=== PATIENT | female | born 2000 | race Caucasian/White ===

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

== ENCOUNTER → 2022-01-01 12:13 | Outpatient (BNVA) | payer BC, SELFPAY | PROVIDERS: Family Provider Nurse Practitioner Family; PCP Nurse Practitioner Family; Visit Provider Emergency Medicine | DX: E28.2 Polycystic ovarian syndrome (principal); J45.31 Mild persistent asthma with (acute) exacerbation; L20.82 Flexural eczema; N92.1 Excessive and frequent menstruation with irregular cycle; T78.40XD Allergy, unspecified, subsequent encounter; Z83.2 Family history of diseases of the blood and blood-forming organs and certain disorders involving the immune mechanism | CPT/HCPCS: 85025; 86160; 86162; 86200; 86235; 86255; 86376; 86431 ==

== ENCOUNTER 2022-01-09 14:30 | Outpatient (CLI) | payer BC, SELFPAY ==
--- NOTE | 2022-01-09 14:52 | XR_ITS ---
WS: [id number] Left hand, 2 views, 01/09/2022 Clinical Data: J45.909 - Unspecified asthma, uncomplicated Comparison: None. Findings: No fractures or dislocations are seen. The soft tissues are unremarkable. The joint spaces are normal No periarticular demineralization or calcifications are seen. XR/XR hand LT 2V [id number] Impression: Negative left hand.
--- NOTE | 2022-01-09 14:52 | XR_ITS ---
WS: [id number] Right hand, 2 views, 01/09/2022 Clinical Data: J45.909 - Unspecified asthma, uncomplicated Comparison: None. Findings: No fractures or dislocations are seen. The soft tissues are unremarkable. The joint space s are normal No periarticular demineralization or calcifications are seen. XR/XR hand RT 2V [id number] Impression: Negative right hand.
--- NOTE | 2022-01-09 14:52 | XR_ITS ---
WS: [id number] Sacroiliac joints, 3 views, 01/09/2022 Clinical Data: L40.9 - Psoriasis, unspecified Comparison: None. Findings: The SI joints are normal in width. No erosion, sclerosis or destruction is seen. There are no fractur es or dislocations. The adjacent visualized pelvis and hips are unremarkable. XR/XR sacroiliac jts m 3V [id number] Impression: Negative SI joints.
== END 2022-01-09 14:31 | disposition home or self-care (01) ==
PROVIDERS: PCP Nurse Practitioner Family; Visit Provider Internal Medicine
DX: E28.2 Polycystic ovarian syndrome (principal); J45.909 Unspecified asthma, uncomplicated; L30.9 Dermatitis, unspecified; N92.1 Excessive and frequent menstruation with irregular cycle; T78.40XA Allergy, unspecified, initial encounter; L40.9 Psoriasis, unspecified
CPT/HCPCS: 72202; 73120; 81003; 82306; 82533; 82550; 82607; 82728; 82784; 83516; 83540; 84443; 85651; 86140; 86617; 86704; 86803; 86812; 87340

== ENCOUNTER → 2022-01-24 13:07 | Outpatient (BNVA) | payer BC, SELFPAY | PROVIDERS: PCP Nurse Practitioner Family; Visit Provider Internal Medicine | DX: R31.9 Hematuria, unspecified (principal); R76.8 Other specified abnormal immunological findings in serum | CPT/HCPCS: 81000 ==

== ENCOUNTER 2022-02-05 14:46 | Outpatient (CLI) | payer BC, SELFPAY ==
--- NOTE | 2022-02-05 15:15 | USCV_ITS ---
Devonte Rivas Age: 21 Gender: F : 2000 Exam Date: 02/05/2022 15:11 Ordering Phys: Tressa Collins MD Technologist: JORDAN [place] [facility] [place] F[place] BP: 120 / 60 HR: 85 Rhythm: Sinus Technical Quality: Adequate MEASUREMENTS (Male / Female) Normal Values 2D ECHO LV Diastolic Diameter PLAX 4.6 cm 4.2 - 5.9 / 3.9 - 5.3 cm LV Systolic Diameter PLAX 2.7 cm IVS Diastolic Thickness 1.1 cm 0.6 - 1.0 / 0.6 - 0.9 cm IVS Systolic Thickness 1.8 cm LVPW Diastolic Thickness 1.2 cm 0.6 - 1.0 / 0.6 - 0.9 cm LVPW Systolic Thickness 1.6 cm LVOT Diameter 2.0 cm LV Ejection Fraction 2D Teich 71.8 % LV Ejection Fraction MOD 2C 62.7 % LV Ejection Fraction 2C AL 62.8 % LA Diameter 3.0 cm LA Width 4.7 cm LA Height 4.9 cm RA Width 4.1 cm RA Height 4.7 cm Aorta at Sinotubular Diameter 2.0 cm M-MODE Aortic Annulus Diameter 2.5 cm LA Ao Ratio MM 1.1 MV E Point Septal Separation 0.6 cm DOPPLER AV Peak Velocity 153.0 cm/s LVOT Peak Velocity 85.0 cm/s AV Area Cont Eq vti 1.6 cm squared AV Area Cont Eq pk 1.8 cm squared MV Peak Velocity 101.0 cm/s MV Area PHT 3.7 cm squared Mitral E to A Ratio 1.2 MV E' Velocity 58.0 cm/s Mitral E to MV E' Ratio 6.2 Mitral E to LV E' Lateral Ratio 5.7 Mitral E to LV E' Septal Ratio 6.8 TR Peak Velocity 141.1 cm/s TR Peak Gradient 8.0 mmHg TR Mean Velocity 102.1 cm/s TR Mean Gradient 4.5 mmHg TR Velocity Time Integral 31.1 cm TV Peak E Velocity 62.0 cm/s Right Atrial Pressure 3.0 mmHg Pulmonary Artery Systolic Pressu 11.0 mmHg PV Peak Velocity 110.0 cm/s FINDINGS Left Ventricle Normal left ventricular size, systolic function and wall thickness, with no regional wall motion abnormalities. Normal left ventricular wall thickness. Normal diastolic filling pattern. Right Ventricle The right ventricle is normal in size and function. There is probably a small PFO. Right Atrium The right atrium is normal in size. Left Atrium The left atrium is normal in size. Mitral Valve Structurally normal mitral valve without significant stenosis or prolapse. There is no mitral regurgitation. Aortic Valve Structurally normal aortic valve without significant sclerosis or stenosis. There is no aortic regurgitation. Tricuspid Valve Structurally normal tricuspid valve without significant stenosis or regurgitation. Pulmonary artery systolic pressure is normal. Pulmonic Valve Structurally normal pulmonic valve without significant stenosis. There is no pulmonic regurgitation. Pericardium Normal pericardium without effusion. Aorta Normal ascending aorta dimension. CONCLUSIONS Normal left ventricular size, systolic function and wall thickness, with no regional wall motion abnormalities. Normal left ventricular wall thickness. Normal diastolic filling pattern. The right ventricle is normal in size and function. There is probably a small PFO. Dr. Deep Rayo MD (Electronically Signed) Final Date: 05 February 2022 17:43 S
== END 2022-02-05 14:47 | disposition home or self-care (01) ==
PROVIDERS: PCP Nurse Practitioner Family; Visit Provider Internal Medicine
DX: R50.9 Fever, unspecified (principal)
CPT/HCPCS: 93306

== ENCOUNTER → 2022-07-10 13:08 | Outpatient (BNVA) | payer BC, SELFPAY | PROVIDERS: PCP Family Medicine; Visit Provider Emergency Medicine | DX: J02.0 Streptococcal pharyngitis (principal); U07.1 COVID-19 | CPT/HCPCS: 87071; 87880 ==

== ENCOUNTER 2022-09-18 07:16 | Outpatient (CLI) | payer BC, SELFPAY ==
--- NOTE | 2022-09-18 07:15 | US_ITS ---
WS: [id number] TRANSABDOMINAL PELVIC ULTRASOUND HISTORY: E28.2 - Polycystic ovarian syndrome COMPARISON: None available. Uterus: 6.9 cm x 5.0 cm x 3.5 cm. Normal size and echogenicity. No fibroids are identified. Endometrium: 1.2 cm. Normal homogeneity and size. Right ovary: 4.1 cm x 3.8 cm x 3.0 cm; no solid or cystic mass. Normal vascularity. Dominant RIGHT ov delmer follicle measures 2.3 x 2.7 x 2.2 cm. Left ovary: 3.3 cm x 2.2 cm x 2.3 cm; no solid or cystic mass. Normal vascularity. Small follicles. No free fluid in the cul-de-sac. US/US pelvic complete* [id number] IMPRESSION: Unremarkable transabdominal pelvic ultrasound. Patient declined transvaginal imaging.
== END 2022-09-18 07:17 | disposition home or self-care (01) ==
PROVIDERS: PCP Family Medicine; Visit Provider Family Medicine
DX: Z11.1 Encounter for screening for respiratory tuberculosis (principal); E28.2 Polycystic ovarian syndrome
CPT/HCPCS: 71046; 76856

== ENCOUNTER → 2022-09-20 11:38 | Outpatient (BNVA) | payer BC, SELFPAY | PROVIDERS: PCP Family Medicine; Visit Provider Emergency Medicine | DX: M25.552 Pain in left hip (principal); M53.3 Sacrococcygeal disorders, not elsewhere classified; R07.81 Pleurodynia | CPT/HCPCS: 71111; 72220; 73502 ==

== ENCOUNTER → 2023-03-28 09:53 | Outpatient (BNVA) | payer BC, SELFPAY | PROVIDERS: PCP Family Medicine; Visit Provider Nurse Practitioner Family | DX: J02.9 Acute pharyngitis, unspecified (principal); H60.312 Diffuse otitis externa, left ear; H69.83 Other specified disorders of Eustachian tube, bilateral; R09.82 Postnasal drip | CPT/HCPCS: 87071; 87880 ==

== ENCOUNTER 2023-07-27 07:22 | Emergency (ER) | payer BC, SELFPAY ==
[2023-07-27 07:35] VITALS: BP 143/94; PULSE 86; RESP 14; TEMP 36.8; O2SAT 99; BMI 30.2
--- NOTE | 2023-07-27 07:45 | ED_ITS ---
HPI - Abdominal Pain General: Chief Complaint: Abdominal Pain Stated Complaint: Abd pain radiating left shldr Time Seen by Provider: 07/27/23 07:23 Source: patient Mode of arrival: ambulatory Limitations: no limitations History of Present Illness: Patient is a 23-year-old female presents to ED today with complaint of abdominal pain over the past day or so. She states she began noticing discomfort ye sterday evening. She reports pain is lower in her abdomen/pelvis. She is reporting nausea without episodes of emesis. She has been having normal bowel movements. She denies frequency, dysuria, urgency, hesitancy, hematuria. No vaginal bleeding or vaginal discharge. No new sexual partners or concern for STDs. She states she does have a history of PCOS and had similar discomforts several months ago related to this. No fevers. MD elicited complaint: abdominal pain Pertinent past history: other (PCOS, gastric bypass, appendectomy, umbilical hernia repair) Onset (ago): day(s) Pain Consistency: constant Location: RLQ, LLQ, Suprapubic and Pelvis Severity: moderate Radiation: none Migration to: no migration Exacerbating factors: nothing Relieving factors: nothing Associated Symptoms: Reports nausea; Denies change in bowel habits, chills, diarrhea, dysuria, fever(s), hematochezia , melena and vomiting Related Data: Patient : No Review of Systems Const: Denies: fever(s), chills, body aches, fatigue or malaise Card: Denies: chest pain Resp: Denies: dyspnea GI: Reports: abdominal pain and nausea; Denies: vomiting, diarrhea, change in bowel habits, hematochezia, melena or mucus in stool : Denies: flank pain, difficulty voiding, dysuria, urinary frequency, urinary urgency, urinary hesitancy or dribbling Musc: Denies: neck pain, back pain, extremity pain or joint pain Skin/Breast: Denies: rash Neuro: Denies: headache(s), numbness in extremities, weakness in extremities, sensory changes or dizziness PFS ED PFSH: Medical History Allergies Asthma Atopic dermatitis of both hands Family history of autoimmune disorder Hematuria History of MRSA infection PCOS (polycystic ovarian syndrome) Surgical History History of appendectomy History of dental surgery History of gastric bypass 03/2023 History of umbilical hernia repair Hx of tonsillectomy Family History Grandmother Diabetes CAD (coronary artery disease) Grandfather Dementia Cancer Other Chronic kidney disease (CKD) Hyperlipidemia Hypertension Lupus Psoriatic arthritis Rheumatoid arthritis Stroke Social History Smoking and tobacco status: never smoked Second hand smoke exposure: No Alcohol intake: never Substance/Drug Use: never Physical Exam Const: COMMON NORMALS: no acute distress, patient oriented x3, no limitations, alert and well nourished GENERAL APPEARANCE: cooperative ORIENTATION/CONSCIOUSNESS: Yes awake, Yes oriented to person, Yes oriented to place and Yes oriented to time HENMT: COMMON NORMALS: normocephalic and atraumatic HEAD & SCALP: normal to inspection, normocephalic and atraumatic Eye: COMMON NORMALS: no scleral icterus Neck/C-Spine: COMMON NORMALS: no lymphadenopathy Resp: COMMON NORMALS: normal respiratory effort and clear to auscultation bilaterally AUSCULTATION: clear to auscultation bilaterally Cardio: COMMON NORMALS: regular rate and regular rhythm RATE: regular rate RHYTHM: regular rhythm GI: COMMON NORMALS: Normal to inspection, nondistended, normoactive bowel sounds present, Soft to palpation, No hepatosplenomegaly present and no masses INSPECTION: Yes normal to inspection AUSCULTATION: Yes normoactive bowel sounds PALPATION: Yes Soft to palpation, Yes Tenderness to palpation present (GI) (lower abdomen/pelvis), No Guarding due to palpation present (GI), No Rigid due to palpation and Yes No hepatosplenomegaly present : COMMON NORMALS: Yes no CVA tenderness BLADDER/KIDNEY EXAM: Yes no CVA tenderness Back/Pelvis: COMMON NORMALS: no CVA tenderness, thoracic and lumbar spine normal to inspection, no thoracic nor lumbar tenderness and thoraco-lumbar ROM normal Extremity: COMMON NORMALS: normal to inspection GENERAL: Yes normal exam except as noted Neuro: CARISSA COMA SCALE: document GCS findings [employer] coma scale eye opening: Spontaneous [employer] coma scale verbal response: Orientated Carissa coma scale motor response: Obey commands Carissa coma scale total score: 15 COMMON NORMALS: patient oriented x3 SENSORIUM/ORIENTATION: Yes alert, Yes oriented to person, Yes oriented to place and Yes oriented to time Skin: COMMON NORMALS: no rashes or lesions noted GENERAL SKIN EXAM: no rashes or lesions noted Course Vital Signs: Vital signs: Vital Signs Temperature 98.3 F 07/27/23 07:35 Pulse Rate 74 07/27/23 07:54 Respiratory Rate 15 07/27/23 07:54 Blood Pressure 145/94 07/27/23 07:54 Pulse Oximetry 97 07/27/23 07:54 Oxygen Delivery Me thod Room Air 07/27/23 07:54 MDM - Abdominal Pain Medical Decision Making Patient is a 23-year-old female presents to ED today with complaint of lower abdominal/pelvic pain beginning yesterday. She states she has had previous pains similarly related to her PCOS. She is not having any vaginal bleeding or vaginal discharge. No concern for sexually transmitted infections. She has no urinary complaints. She is passing stool/flatulence. Exam abdomen is nonsurgical. Her vital signs are stable. Blood work is unremarkable. She has a normal white count. UA is contaminated. US is essentially normal. geological technician did comment on a mildly thickened endometrium could indicate upcoming menstrual cycle. Ovaries appeared normal. Discussed with patient lab and ultrasound findings. We did discuss CT imaging however I think this is unnecessary at this time. Recommended close observation of symptoms at home. Strict return ED precautions given. Otherwise I would like her to follow-up with primary care later this week for reevaluation. Lab Data 07/27/23 07:45 07/27/23 07:45 Labs/Radiology: Laboratory Results WBC 4.61 10^3/uL (3.29-11.43) 07/27/23 07:45 RBC 4.71 10^6/uL (3.85-5.65) 07/27/23 07:45 Hgb 13.60 g/dL (11.27-16.99) 07/27/23 07:45 Hct 40.9 % (36-47) 07/27/23 07:45 MCV 86.8 fl (85-98) 07/27/23 07:45 MCH 28.9 pg (27-33) 07/27/23 07:45 MCHC 33.3 g/dL (30-55) 07/27/23 07:45 RDW 13.2 % (12.1-15.1) 07/27/23 07:45 Plt Count 179 10^3/cmm (157-399) 07/27/23 07:45 MPV 11.8 fL (7.4-10.4) H 07/27/23 07:45 Lymph % (Auto) Not Reportable 07/27/23 07:45 [place] % (Auto) Not Reportable 07/27/23 07:45 Lymph # (Auto) Not Reportable 07/27/23 07:45 [place] # (Auto) Not Reportable 07/27/23 07:45 Total Counted 100 (0-100) 07/27/23 07:45 Atypical Lymphs % 6.0 % (0-5) H 07/27/23 07:45 Absolute Neutrophils 2.1 10^3/cmm (1.4-6.5) 07/27/23 07:45 Segmented Neutrophils 42 % 07/27/23 07:45 Abs Segm Neuts (Man) 1.9 10/cmm (1.6-7.1) 07/27/23 07:45 Band Neutrophils 3.0 % 07/27/23 07:45 Abs Band Neuts (Man) 0.1 10^3/cmm (0.0-1.2) 07/27/23 07:45 Absolute Lymphocytes 1.9 10^3/cmm (1.2-3.4) 07/27/23 07:45 Lymphocytes (Manual) 36 % 07/27/23 07:45 Monocytes (Manual) 11.0 % 07/27/23 07:45 Absolute Monocytes 0.5 10^3/cmm (0.1-0.6) 07/27/23 07:45 Eosinophils (Manual) 2 % 07/27/23 07:45 Absolute Eosinophils 0.1 10^3/cmm (0.0-0.7) 07/27/23 07:45 Basophils (Manual) 0.0 % 07/27/23 07:45 Absolute Basophils 0.0 10^3/cmm (0.0-0.2) 07/27/23 07:45 Metamyelocytes 0.0 % 07/27/23 07:45 Myelocytes 0.0 % 07/27/23 07:45 Promyelocytes 0.0 % 07/27/23 07:45 Nucleated RBCs 0.0 /100WBC (0-1) 07/27/23 07:45 Blast Cells 0 % (0-0) 07/27/23 07:45 Platelet Estimate Normal (Normal) 07/27/23 07:45 Sodium 138 mmol/L (136-145) 07/27/23 07:45 Potassium 3.5 mmol/L (3.5-5.1) 07/27/23 07:45 Chloride 101 mmol/L (98-107) 07/27/23 07:45 Carbon Dioxide 26 mmol/L (22-29) 07/27/23 07:45 Anion Gap 14.5 (5-19) 07/27/23 07:45 BUN 11 mg/dL (6-20) 07/27/23 07:45 Creatinine 0.5 mg/dL (0.5-0.9) 07/27/23 07:45 GFR Calculation 155.7 mL/min (90-130) H 07/27/23 07:45 Glucose 86 mg/dL (65-115) 07/27/23 07:45 Calculated Osmolality 285 mOsm/kg (285-295) 07/27/23 07:45 Calcium 9.6 mg/dL (8.5-10.5) 07/27/23 07:45 Total Bilirubin 0.5 mg/dL (0.15-1.2) 07/27/23 07:45 AST 22 U/L (0-32) 07/27/23 07:45 ALT 17 U/L (0-33) 07/27/23 07:45 Alkaline Phosphatase 83 U/L (35-105) 07/27/23 07:45 Total Protein 8.0 g/dL (6.6-8.7) 07/27/23 07:45 Albumin 4.6 g/dL (3.5-5.2) 07/27/23 07:45 Globulin 3.4 g/dL (1.3-4.6) 07/27/23 07:45 Lipase 20 U/L (13-60) 07/27/23 07:45 HCG, Qual Negative (Negative) 07/27/23 07:45 Urine Color Dark yellow (Yellow) 07/27/23 07:39 Urine Appearance Hazy (CLEAR) A 07/27/23 07:39 Urine pH 5 (5-7) 07/27/23 07:39 Ur Specific Pinson 1.025 (1.005-1.030) 07/27/23 07:39 Urine Protein Neg (Negative) 07/27/23 07:39 Urine Glucose (UA) Norm (Normal) 07/27/23 07:39 Urine Ketones 1+ (Negative) H 07/27/23 07:39 Urine Blood Neg (Negative) 07/27/23 07:39 Urine Nitrate Negative (Negative) 07/27/23 07:39 Urine Bilirubin 1+ (Negative) H 07/27/23 07:39 Urine Urobilinogen 1 mg/dL (Negative) H 07/27/23 07:39 Ur Leukocyte Esterase Trace (Negative) H 07/27/23 07:39 Urine RBC 0-4 /hpf (0-2) H 07/27/23 07:39 Urine WBC 0-4 /hpf (0-5) H 07/27/23 07:39 Ur Squamous Epith Cells 10-15 /hpf (0-5) H 07/27/23 07:39 Calcium Oxalate Crystal 10-15 /hpf H 07/27/23 07:39 Amorphous Sediment Not Reportable 07/27/23 07:39 Urine Bacteria 2+ /hpf (NONE) H 07/27/23 07:39 Urine Mucus 2+ /hpf 07/27/23 07:39 XR interpretation done by ED provider, pending radiology final review (US prelim report from [facility]) Discharge Plan Discharge Patient Disposition: Home Clinical Impression: Abdominal pain of unknown cause Condition: Stable Prescriptions: No Action fluticasone propionate 50 mcg/actuation spray,suspension 1 spray intranasal DAILY PRN (Reason: allergy symptoms) Qty: 16 0RF Rx Instructions: administer into each nostril cyanocobalamin (vitamin B-12) 1,000 mcg/mL solution 1,000 mcg IM .EVERY 30 DAYS EpiPen 2-Lv 0.3 mg/0.3 mL Auto-Injector 0.3 mg IM . DIRECTED PRN (Reason: Allergic Reaction) ProAir HFA 90 mcg/actuation HFA aerosol inhaler 2 puff inhalation Q6H PRN (Reason: Shortness Of Breath) Discharge Orders: Discharge ED (Routine); Ordered 07/27/23 Ordered By: Lynne Brothers Referrals: Radha Sam MD [Primary Care Provider] - Patient Instructions: Abdominal Pain (ED) Activity Restrictions/Additional Instructions: As we discussed your emergency department work-up today was benign. Urine was contaminated however if you begin developing symptoms of a urinary tract infection such as painful urination, urinary frequency/urgency/hesitancy this follow-up with your primary care provider and have a urine analysis repeated. Ultrasound today was normal apart from a mildly thickened endometrium. We discussed CT imaging however decided to hold off on this at this time. As we discussed I would like you to monitor symptoms closely. You need to return to the emergency department for worsening abdominal/pelvic pain, fevers, repetitive episodes of vomiting or diarrhea, generally feeling worse or unwell, or any other concerns you may have. I hope you begin to feel better soon. Coding Level of Care Code ED Clamp Forklift Operator for Heather Noel
[2023-07-27 07:54] VITALS: BP 145/94; PULSE 74; RESP 15; O2SAT 97
[2023-07-27 07:57] LABS: Hematocrit 40.9 % (36-47); Mean Corpuscular HGB Conc 33.3 g/dL (30-55); Mean Corpuscular Hemoglobin 28.9 pg (27-33); Mean Corpuscular Volume 86.8 fl (85-98); Mean Platelet Volume 11.8 fL (7.4-10.4); Platelet Count 179 10^3/cmm (157-399); Red Blood Count 4.71 10^6/uL (3.85-5.65); Red Cell Distribution Width 13.2 % (12.1-15.1); White Blood Count 4.61 10^3/uL (3.29-11.43)
[2023-07-27 08:09] LABS: HCG, Serum Qual Negative (Negative)
[2023-07-27 08:15] LABS: Alanine Aminotransferase 17 U/L (0-33); Albumin Level 4.6 g/dL (3.5-5.2); Alkaline Phosphatase 83 U/L (35-105); Anion Gap 14.5 (5-19); Aspartate Amino Transferase 22 U/L (0-32); Blood Urea Nitrogen 11 mg/dL (6-20); Calcium 9.6 mg/dL (8.5-10.5); Carbon Dioxide 26 mmol/L (22-29); Chloride 101 mmol/L (98-107); Globulin 3.4 g/dL (1.3-4.6); Glomerular Filtration Rate 155.7 mL/min (90-130); Glucose 86 mg/dL (65-115); Lipase 20 U/L (13-60); Osmolality Calculated 285 mOsm/kg (285-295); Potassium 3.5 mmol/L (3.5-5.1); Sodium 138 mmol/L (136-145); Total Bilirubin 0.5 mg/dL (0.15-1.2)
[2023-07-27 08:34] LABS: Add Urine Microscopic? YES; Bacteria Urine 2+ /hpf; Bilirubin Urine 1+ (Negative); Blood Urine Neg (Negative); Glucose Urine UA Norm (Normal); Ketones Urine 1+ (Negative); Leukocyte Esterase Urine Trace (Negative); Mucus Urine 2+ /hpf; Nitrate Urine Negative (Negative); Protein Urine Neg (Negative); RBC Urine 0-4 /hpf (0-2); Specific Gravity, Urine 1.025 (1.005-1.030); Urine Appearance Hazy (CLEAR); Urine Color Dark Yellow (Yellow); Urobilinogen Urine 1 mg/dL (Negative); WBC Urine 0-4 /hpf (0-5); pH Urine 5 (5-7)
[2023-07-27 08:35] LABS: Add Urine Culture? No
[2023-07-27 08:35] LABS: Slide Review Slide Review Perform
[2023-07-27 08:36] LABS: Absolute Eosinophils 0.1 10^3/cmm (0.0-0.7); Absolute Segmented Neutrophil 1.9 10/cmm (1.6-7.1); Band Neutrophils Absolute 0.1 10^3/cmm (0.0-1.2); Blastocytes 0 % (0-0); Eosinophils 2 %; Lymphocytes 36 %; Lymphocytes Absolute 1.9 10^3/cmm (1.2-3.4); Monocytes Absolute 0.5 10^3/cmm (0.1-0.6); Segmented Neutrophils 42 %; Total Cells Counted 100 (0-100)
[2023-07-27 08:37] LABS: Absolute Neutrophil 2.1 10^3/cmm (1.4-6.5); Platelet Estimate Normal (Normal)
--- NOTE | 2023-07-27 08:38 | US_ITS ---
WS: [id number] US transvaginal [id number] HISTORY: pelvic pain, hx of pcos COMPARISON: None available. Uterus: 6.7 cm x 4.5 cm x 3.6 cm. Normal size anteverted uterus. No fibroid or mass. Endometrium: 1.8 cm. Endometrium is mildly thickened and prominent towards the fundus. No change in e chogenicity and no increased vascularity. Right ovary: 3.0 cm x 2.4 cm x 2.5 cm. Several small peripheral follicles. Number of follicles is les s than 20. Left ovary: 4.7 cm x 3.3 cm x 3.3 cm. Several small peripheral follicles. Number of follicles is less than 20. No free fluid in the cul-de-sac. IMPRESSION: 1. Endometrium is measuring top normal size. There is no increased vascularity and no change in echog enicity or mass identified. 2. No adnexal masses.
--- NOTE | 2023-07-27 08:43 | PC.PHAR ---
PT STATES SHE TAKES CARE OF HER OWN MEDICATIONS-PT STATES SHE IS NO LONGER USING ANY KIND OF CREAMS OR TAKING PREDNISONE-PT STATES SHE HASNT TAKEN KUMAR IN MONTHS-PT STATES GOT HER B12 INJECTION ABOUT A WEEK AGO-
== END 2023-07-27 10:09 | disposition home or self-care (01) ==
PROVIDERS: Emergency Provider Physician Assistant; PCP Family Medicine
DX: R10.30 Lower abdominal pain, unspecified (principal)
CPT/HCPCS: 76830; 80053; 81001; 83690; 84703; 85007; 85025; 99284

== ENCOUNTER → 2023-08-04 14:07 | Outpatient (BNVA) | payer BC, SELFPAY | PROVIDERS: PCP Family Medicine; Visit Provider Nurse Practitioner Family | DX: Z11.1 Encounter for screening for respiratory tuberculosis (principal) | CPT/HCPCS: 86480 ==

== ENCOUNTER 2023-08-18 14:53 | Outpatient (CLI) | payer BC, SELFPAY ==
[2023-08-20 14:24] LABS: Quantiferon Mitogen 8.38 IU/mL; Quantiferon Nil 0.03 IU/mL; Quantiferon Plus TB1 0.07 IU/mL; Quantiferon Plus TB2 0.01 IU/mL; Quantiferon TB Gold NEGATIVE (NEGATIVE)
== END 2023-08-18 14:54 | disposition home or self-care (01) ==
PROVIDERS: PCP Family Medicine; Visit Provider Nurse Practitioner Family
DX: Z11.1 Encounter for screening for respiratory tuberculosis (principal)
CPT/HCPCS: 36415; 86480

== ENCOUNTER 2023-10-02 18:09 | Emergency (ER) | payer BC, SELFPAY ==
[2023-10-02 18:15] VITALS: BP 119/75; PULSE 75; RESP 17; TEMP 36.6; O2SAT 100
--- NOTE | 2023-10-02 18:18 | ECG_ITS ---
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 Measurements Intervals [place] Rate: 74 P: 48 IL: 134 QRS: -56 QRSD: 89 T: 31 QT: 376 QTc: 420 Interpretive Statements SINUS RHYTHM INDETERMINATE AXIS LOW QRS VOLTAGE IN PRECORDIAL LEADS [QRS DEFLECTION < 1.0 mV IN CHEST LEADS] POSSIBLE RIGHT VENTRICULAR CONDUCTION DELAY [RSR (QR) IN V1/V2] No previous ECG available for comparison Electronically Signed On 10-03-2023 5:56:21 TREAD BUILDER by Haley Apodaca M.D. [id number] f
[2023-10-02 19:26] VITALS: BP 113/77; PULSE 80; RESP 18; O2SAT 100
[2023-10-02 19:28] LABS: Basophils % 0.5 %; Eosinophils # 0.1 10^3/uL (0.0-0.8); Eosinophils % 1.7 %; Hematocrit 42.8 % (36-47); Lymphocytes # 2.4 10^3/uL (0.8-4.8); Mean Corpuscular HGB Conc 32.7 g/dL (30-55); Mean Corpuscular Hemoglobin 28.5 pg (27-33); Mean Corpuscular Volume 87.2 fl (85-98); Mean Platelet Volume 11.5 fL (7.4-10.4); Monocytes # 0.8 10^3/uL (0.2-0.9); Monocytes % 11.5 %; Neutrophils # 3.29 10^3/uL (1.8-7.7); Neutrophils % 50.1 %; Nucleated Red Blood Cells % 0 %; Platelet Count 239 10^3/cmm (157-399); Red Blood Count 4.91 10^6/uL (3.85-5.65); Red Cell Distribution Width 12.8 % (12.1-15.1); White Blood Count 6.55 10^3/uL (3.29-11.43)
--- NOTE | 2023-10-02 19:42 | XRR_ITS ---
PROCEDURE INFORMATION: Exam: XR Chest Exam date and time: 10/02/2023 7:46 PM Age: 23 years old Clinical indication: Angina pectoris; Patient HX: Chest/epigastric pain x 3 days; HTN TECHNIQUE: Imaging protocol: Radiologic exam of the chest. Views: 1 view. COMPARISON: CR XR chest 2V* [id number] 08/06/2022 3:02 PM FINDINGS: Lungs: No consolidation. Pleural spaces: No large pleural effusion. No pneumothorax. Heart/Mediastinum: Unremarkable cardiomediastinal silhouette. Bones/joints: No acute abnormality. XR/XR chest 1V [id number] IMPRESSION: No acute findings.
--- NOTE | 2023-10-02 19:45 | USR_ITS ---
PROCEDURE INFORMATION: Exam: US Abdomen, Limited; Right Upper Quadrant Exam date and time: 10/02/2023 11:51 PM Age: 23 years old Clinical indication: Abdominal pain; Acute; Patient HX: Patient has history of appendectomy and gastric bypass. Unsure of dates; Additional info: Ruq pain TECHNIQUE: Imaging protocol: Real time ultrasound of the abdomen with image documentation. Limited exam focused on the right upper quadrant. COMPARISON: US transvaginal [id number] 07/27/2023 9:16 AM FINDINGS: Liver: Liver unremarkable. Patent main portal vein. Gallbladder: No gallbladder wall thickening or pericholecystic fluid. Possible tiny echogenic gallstones. Negative sonographic Daley's sign. Biliary ducts: No common bile duct dilation. Pancreas: Pancreas not visualized due to obscuration from bowel gas. Right kidney: No hydronephrosis. US/US abdomen limited [id number] IMPRESSION: Possible tiny echogenic gallstones, but no sonographic evidence of acute cholecystitis.
--- NOTE | 2023-10-02 19:45 | ED_ITS ---
Documented by User: HIRAL Morillo 10/03/23 01:37 HPI - Abdominal Pain 2 General: Chief Complaint: Abdominal Pain Stated Complaint: abd pain sob chest pain Time Seen by Provider: 10/02/23 18:26 History of Present Illness: Patient is a 23-year-old female status post gastric bypass in March 2023 with a past medical history significant for polycystic ovarian syndrome who presents to the emergency department for evaluation of right upper quadrant abdominal pain. Patient reports that her symptoms been intermittent for approximately 1 week and has continued to progress. Patient states that today she started develop mild chest pain and shortness of breath so she decided present to the emergency department for further management/evaluation. Patient states that the chest pain has resolved, however, she has continued to have shortness of breath. She currently rates her abdominal pain as a 4 out of 10 in severity that she describes as a sharp/stabbing sensation. Pain is exacerbated when laying on the right side and after eating. Admits to nausea but denies any episodes of emesis. Patient states that on Thursday she had a mild fever of 100.0 ?F. LMP was approximately 09/05/2023. Patient states that she has had intermittent constipation and diarrhea. She denies cough, congestion, lightheadedness, dizziness, visual disturbances, melena, hematochezia, dysuria, hematuria, abnormal vaginal discharge, or any other associated symptoms. She denies history of DVT/PE, use of oral contraceptive medication, or long distance travels. Patient did have abdominal surgery in March. No other complaints at this time Associated Symptoms: Reports chills, constipation, diarrhea, fever(s) and nausea; Denies dysuria, hematuria, syncope and vomiting Review of Systems 2 General: Reports: 10 or more systems reviewed and unremarkable except in HPI and below Const: Reports: fever(s), chills and change in appetite Eyes: Denies: change in vision or blurry vision ENMT: Denies: throat pain, ear or mastoid pain, ear discharge, nasal discharge or nasal congestion Card: Reports: chest pain; Denies: palpitations or syncope Resp: Reports: dyspnea; Denies: productive cough, non-productive cough or wheezing GI: Reports: abdominal pain, nausea, diarrhea and constipation; Denies: vomiting : Denies: flank pain, dysuria or hematuria Musc: Denies: neck pain, back pain or extremity pain Skin/Breast: Denies: rash Neuro: Denies: headache(s), dizziness or vertigo Psych: Denies: anxiety or depression PFSH ED 2 PFSH: Medical History Allergies Asthma Atopic dermatitis of both hands Family history of autoimmune disorder Hematuria History of MRSA infection PCOS (polycystic ovarian syndrome) Surgical History History of appendectomy History of dental surgery History of gastric bypass 03/2023 History of umbilical hernia repair Hx of tonsillectomy Family History Grandmother Diabetes CAD (coronary artery disease) Grandfather Dementia Cancer Other Chronic kidney disease (CKD) Hyperlipidemia Hypertension Lupus Psoriatic arthritis Rheumatoid arthritis Stroke Social History Smoking and tobacco/nicotine status: never used tobacco/nicotine Second hand smoke exposure: No Alcohol intake: never Substance/Drug Use: never Physical Exam 2 Const: COMMON NORMALS: no acute distress, patient oriented x3 and alert HENMT: COMMON NORMALS: normocephalic, atraumatic, moist oral mucous membranes and oropharynx normal HEAD & SCALP: normocephalic and atraumatic Eye: COMMON NORMALS: Equal, round and reactive pupils present, EOMs intact bilaterally and conjunctivae normal CONJUNCTIVA: Yes conjunctivae normal P UPIL: Yes Equal, round and reactive pupils present Neck/C-Spine: COMMON NORMALS: full ROM and no JVD Chest: COMMONS NORMALS: normal inspection of the chest Resp: COMMON NORMALS: normal respiratory effort, No retractions, No use of accessory muscles and clear to auscultation bilaterally AUSCULTATION: clear to auscultation bilaterally Cardio: COMMON NORMALS: no JVD, regular rate, regular rhythm, No gallops present (Cardio), No clicks present (Cardio), No murmurs present (Cardio) and No rub (Cardio) RATE: regular rate RHYTHM: regular rhythm GI: OTHER: Normoactive bowel sounds in all 4 quadrants. Daley sign noted to palpation. No McBurney's point tenderness, Rovsing sign, or peritoneal signs noted. No evidence of rebound tenderness. Extremity: OTHER: Moving bilateral upper and lower extremities without weakness or deficit. Neuro: COMMON NORMALS: patient oriented x3 SENSORIUM/ORIENTATION: Yes alert OTHER: Patient is alert and oriented x 4. Sensation intact the bilateral upper and lower extremities. Course 2 Vital Signs: Vital signs: Vital Signs Temperature 97.8 F 10/02/23 18:15 Pulse Rate 61 10/03/23 02:10 Respiratory Rate 18 10/03/23 02:10 Blood Pressure 109/78 10/03/23 02:10 Pulse Oximetry 98 10/03/23 02:10 Oxygen Delivery Me thod Room Air 10/03/23 02:10 MDM - Abdominal Pain Medical Decision Making Patient is a 23-year-old female status post gastric bypass in March 2023 with a past medical history significant for polycystic ovarian syndrome who presents to the emergency department for evaluation of right upper quadrant abdominal pain. On physical examination patient is nontoxic and in no acute distress. Vital signs remained stable throughout the ED course. Patient is afebrile. Patient is neurovascularly intact. CBC, CMP, lipase, urinalysis, and urine all grossly unremarkable. EKG normal sinus rhythm. Chest x-ray showed no acute cardiopulmonary pathology. Given the patient's recent abdominal surgery a D- dimer was ordered for a possible pulmonary embolism. D-dimer was 0.68. CTA of the chest was ordered for further evaluation. CTA showed no evidence of pulmonary embolism. Ultrasound of the right upper quadrant showed possible tiny echogenic gallstones, but no sonographic evidence of acute cholecystitis. Based off history and physical examination I do not believe the patient symptoms are emergent and warrant further emergent evaluation at this time. Tylenol and Motrin as needed for pain. A prescription of Zofran was sent to pharmacy be picked up. Take medication as prescribed. Increase oral hydration. See handout over generalize instructions. Clear liquid diet and slowly advance as tolerated. Call your primary care provider tomorrow with an update of your symptoms and schedule appointment for further management/evaluation. You might need a HIDA scan for further evaluation of your gallbladder. Return to the emergency department the next 12 to 24 hours for any rapid or worsening symptoms to include but not limited to increased abdominal pain, vomiting, fever, chest pain, shortness of breath, lightheadedness, dizziness, or as needed. Patient stated understanding of all discharge instructions was agreeable to plan of care. I discussed patient's history, exam, and all findings with Dr. Flanagan in the emergency department who agreed my assessment and plan. He did not feel the patient required admission or further evaluation at this time. Differential diagnosis includes but is not limited to acute coronary syndrome, pulmonary embolism, cholelithiasis, choledocholithiasis, cholecystitis, ascending cholangitis, gastroenteritis, pancreatitis. Lab Data 10/02/23 19:21 10/02/23 19:21 Labs/Radiology: Radiology Impressions Chest X-Ray 10/02/23 19:42 IMPRESSION: No acute findings. Abdomen Ultrasound 10/02/23 19:45 IMPRESSION: Possible tiny echogenic gallstones, but no sonographic evidence of acute cholecystitis. Chest CTA 10/02/23 20:27 IMPRESSION: No acute thoracic abnormality. No pulmonary emboli. Laboratory Results WBC 6.55 10^3/uL (3.29-11.43) 10/02/23 19:21 RBC 4.91 10^6/uL (3.85-5.65) 10/02/23 19:21 Hgb 14.00 g/dL (11.27-16.99) 10/02/23 19:21 Hct 42.8 % (36-47) 10/02/23 19:21 MCV 87.2 fl (85-98) 10/02/23 19:21 MCH 28.5 pg (27-33) 10/02/23 19:21 MCHC 32.7 g/dL (30-55) 10/02/23 19:21 RDW 12.8 % (12.1-15.1) 10/02/23 19:21 Plt Count 239 10^3/cmm (157-399) 10/02/23 19:21 MPV 11.5 fL (7.4-10.4) H 10/02/23 19:21 Neut % (Auto) 50.1 % 10/02/23 19:21 Lymph % (Auto) 36.0 % 10/02/23 19:21 [place] % (Auto) 11.5 % 10/02/23 19:21 Eos % (Auto) 1.7 % 10/02/23 19:21 Baso % (Auto) 0.5 % 10/02/23 19:21 Neut # (Auto) 3.29 10^3/uL (1.8-7.7) 10/02/23 19:21 Lymph # (Auto) 2.4 10^3/uL (0.8-4.8) 10/02/23 19:21 [place] # (Auto) 0.8 10^3/uL (0.2-0.9) 10/02/23 19:21 Eos # (Auto) 0.1 10^3/uL (0.0-0.8) 10/02/23 19:21 Baso # (Auto) 0.0 10^3/uL (0.0-0.1) 10/02/23 19:21 Nucleated RBC % (auto) 0 % 10/02/23 19:21 Nucleated RBCs # 0.0 /100WBC 10/02/23 19:21 D-Dimer 0.68 ug/mLFEU (0-0.59) H 10/02/23 19:21 Sodium 138 mmol/L (136-145) 10/02/23 19:21 Potassium 4.2 mmol/L (3.5-5.1) 10/02/23 19:21 Chloride 102 mmol/L (98-107) 10/02/23 19:21 Carbon Dioxide 24 mmol/L (22-29) 10/02/23 19:21 Anion Gap 16.2 (5-19) 10/02/23 19:21 BUN 10 mg/dL (6-20) 10/02/23 19:21 Creatinine 0.6 mg/dL (0.5-0.9) 10/02/23 19:21 GFR Calculation 126.2 mL/min (90-130) 10/02/23 19:21 Glucose 90 mg/dL (65-115) 10/02/23 19:21 Calculated Osmolality 285 mOsm/kg (285-295) 10/02/23 19:21 Calcium 9.4 mg/dL (8.5-10.5) 10/02/23 19:21 Total Bilirubin 0.4 mg/dL (0.15-1.2) 10/02/23 19:21 AST 19 U/L (0-32) 10/02/23 19:21 ALT 14 U/L (0-33) 10/02/23 19:21 Alkaline Phosphatase 81 U/L (35-105) 10/02/23 19:21 Troponin T Baseline < 6 ng/L (0-10) 10/02/23 19:21 Troponin T 120 Minute 6.00 ng/L (0-10) 10/02/23 21:24 Delta Troponin T 0.20168 ABS# (0-10) 10/02/23 21:24 Total Protein 7.5 g/dL (6.6-8.7) 10/02/23 19:21 Albumin 4.5 g/dL (3.5-5.2) 10/02/23 19:21 Globulin 3.0 g/dL (1.3-4.6) 10/02/23 19:21 Lipase 31 U/L (13-60) 10/02/23 19:21 HCG, Qual Negative (Negative) 10/02/23 20:19 Urine Color Yellow (Yellow) 10/02/23 20:19 Urine Appearance Clear (CLEAR) 10/02/23 20:19 Urine pH 7 (5-7) 10/02/23 20:19 Ur Specific [place] 1.010 (1.005-1.030) 10/02/23 20:19 Urine Protein Neg (Negative) 10/02/23 20:19 Urine Glucose (UA) Norm (Normal) 10/02/23 20:19 Urine Ketones 1+ (Negative) H 10/02/23 20:19 Urine Blood Neg (Negative) 10/02/23 20:19 Urine Nitrate Negative (Negative) 10/02/23 20:19 Urine Bilirubin Neg (Negative) 10/02/23 20:19 Urine Urobilinogen Neg mg/dL (Negative) 10/02/23 20:19 Ur Leukocyte Esterase Negative (Negative) 10/02/23 20:19 All radiology interpretation(s) finalized by discharge Discharge Plan Discharge Patient Disposition: Home Clinical Impression: Abdominal pain, right upper quadrant Condition: Stable Prescriptions: New ondansetron 4 mg tablet,disintegrating 4 mg PO Q8H PRN (Reason: nausea and vomiting) 5 Days Qty: 15 0RF No Action fluticasone propionate 50 mcg/actuation spray,suspension 1 spray intranasal DAILY PRN (Reason: allergy symptoms) Qty: 16 0RF Rx Instructions: administer into each nostril cyanocobalamin (vitamin B-12) 1,000 mcg/mL solution 1,000 mcg IM .EVERY 30 DAYS EpiPen 2-Lv 0.3 mg/0.3 mL Auto-Injector 0.3 mg IM . DIRECTED PRN (Reason: Allergic Reaction) ProAir HFA 90 mcg/actuation HFA aerosol inhaler 2 puff inhalation Q6H PRN (Reason: Shortness Of Breath) Discharge Orders: Discharge ED (Routine); Ordered 10/03/23 Ordered By: Narendra Mancini Referrals: Radha Sam MD [Primary Care Provider] - Patient Instructions: Abdominal Pain (ED) Activity Restrictions/Additional Instructions: Tylenol and Motrin as needed for pain. A prescription of Zofran was sent to pharmacy be picked up. Take medication as prescribed. Increase oral hydration. See handout over generalize instructions. Clear liquid diet and slowly advance as tolerated. Call your primary care provider tomorrow with an update of your symptoms and schedule appointment for further management/evaluation. You might need a HIDA scan for further evaluation of your gallbladder. Return to the emergency department the next 12 to 24 hours for any rapid or worsening symptoms to include but not limited to increased abdominal pain, vomiting, fever, chest pain, shortness of breath, lightheadedness, dizziness, or as needed. 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 [employer] Documented by User: Viet Flanagan, 10/03/23 17:26 HPI - Abdominal Pain 2 General: Chief Complaint: Abdominal Pain Stated Complaint: abd pain sob chest pain Time Seen by Provider: 10/02/23 18:26 PFSH ED 2 PFSH: Medical History Allergies Asthma Atopic dermatitis of both hands Family history of autoimmune disorder Hematuria History of MRSA infection PCOS (polycystic ovarian syndrome) Surgical History History of appendectomy History of dental surgery History of gastric bypass 03/2023 History of umbilical hernia repair Hx of tonsillectomy Family History Grandmother Diabetes CAD (coronary artery disease) Grandfather Dementia Cancer Other Chronic kidney disease (CKD) Hyperlipidemia Hypertension Lupus Psoriatic arthritis Rheumatoid arthritis Stroke Social History Smoking and tobacco/nicotine status: never used tobacco/nicotine Second hand smoke exposure: No Alcohol intake: never Substance/Drug Use: never Course 2 Vital Signs: Vital signs: Vital Signs Temperature 97.8 F 10/02/23 18:15 Pulse Rate 61 10/03/23 02:10 Respiratory Rate 18 10/03/23 02:10 Blood Pressure 109/78 10/03/23 02:10 Pulse Oximetry 98 10/03/23 02:10 Oxygen Delivery Me thod Room Air 10/03/23 02:10 MDM - Abdominal Pain Medical Decision Making Patient is a 23-year-old female status post gastric bypass in March 2023 with a past medical history significant for polycystic ovarian syndrome who presents to the emergency department for evaluation of right upper quadrant abdominal pain. On physical examination patient is nontoxic and in no acute distress. Vital signs remained stable throughout the ED course. Patient is afebrile. Patient is neurovascularly intact. CBC, CMP, lipase, urinalysis, and urine all grossly unremarkable. EKG normal sinus rhythm. Chest x-ray showed no acute cardiopulmonary pathology. Given the patient's recent abdominal surgery a D- dimer was ordered for a possible pulmonary embolism. D-dimer was 0.68. CTA of the chest was ordered for further evaluation. CTA showed no evidence of pulmonary embolism. Ultrasound of the right upper quadrant showed possible tiny echogenic gallstones, but no sonographic evidence of acute cholecystitis. Based off history and physical examination I do not believe the patient symptoms are emergent and warrant further emergent evaluation at this time. Tylenol and Motrin as needed for pain. A prescription of Zofran was sent to pharmacy be picked up. Take medication as prescribed. Increase oral hydration. See handout over generalize instructions. Clear liquid diet and slowly advance as tolerated. Call your primary care provider tomorrow with an update of your symptoms and schedule appointment for further management/evaluation. You might need a HIDA scan for further evaluation of your gallbladder. Return to the emergency department the next 12 to 24 hours for any rapid or worsening symptoms to include but not limited to increased abdominal pain, vomiting, fever, chest pain, shortness of breath, lightheadedness, dizziness, or as needed. Patient stated understanding of all discharge instructions was agreeable to plan of care. I discussed patient's history, exam, and all findings with Dr. Flanagan in the emergency department who agreed my assessment and plan. He did not feel the patient required admission or further evaluation at this time. Differential diagnosis includes but is not limited to acute coronary syndrome, pulmonary embolism, cholelithiasis, choledocholithiasis, cholecystitis, ascending cholangitis, gastroenteritis, pancreatitis. This patient was originally seen by Mr. Addis PA-C. I agree with his history, evaluation, and treatment. Lab Data 10/02/23 19:21 10/02/23 19:21 Labs/Radiology: Radiology Impressions Chest X-Ray 10/02/23 19:42 IMPRESSION: No acute findings. Abdomen Ultrasound 10/02/23 19:45 IMPRESSION: Possible tiny echogenic gallstones, but no sonographic evidence of acute cholecystitis. Chest CTA 10/02/23 20:27 IMPRESSION: No acute thoracic abnormality. No pulmonary emboli. Laboratory Results WBC 6.55 10^3/uL (3.29-11.43) 10/02/23 19:21 RBC 4.91 10^6/uL (3.85-5.65) 10/02/23 19:21 Hgb 14.00 g/dL (11.27-16.99) 10/02/23 19:21 Hct 42.8 % (36-47) 10/02/23 19:21 MCV 87.2 fl (85-98) 10/02/23 19:21 MCH 28.5 pg (27-33) 10/02/23 19:21 MCHC 32.7 g/dL (30-55) 10/02/23 19:21 RDW 12.8 % (12.1-15.1) 10/02/23 19:21 Plt Count 239 10^3/cmm (157-399) 10/02/23 19:21 MPV 11.5 fL (7.4-10.4) H 10/02/23 19:21 Neut % (Auto) 50.1 % 10/02/23 19:21 Lymph % (Auto) 36.0 % 10/02/23 19:21 [place] % (Auto) 11.5 % 10/02/23 19:21 Eos % (Auto) 1.7 % 10/02/23 19:21 Baso % (Auto) 0.5 % 10/02/23 19:21 Neut # (Auto) 3.29 10^3/uL (1.8-7.7) 10/02/23 19:21 Lymph # (Auto) 2.4 10^3/uL (0.8-4.8) 10/02/23 19:21 [place] # (Auto) 0.8 10^3/uL (0.2-0.9) 10/02/23 19:21 Eos # (Auto) 0.1 10^3/uL (0.0-0.8) 10/02/23 19:21 Baso # (Auto) 0.0 10^3/uL (0.0-0.1) 10/02/23 19:21 Nucleated RBC % (auto) 0 % 10/02/23 19:21 Nucleated RBCs # 0.0 /100WBC 10/02/23 19:21 D-Dimer 0.68 ug/mLFEU (0-0.59) H 10/02/23 19:21 Sodium 138 mmol/L (136-145) 10/02/23 19:21 Potassium 4.2 mmol/L (3.5-5.1) 10/02/23 19:21 Chloride 102 mmol/L (98-107) 10/02/23 19:21 Carbon Dioxide 24 mmol/L (22-29) 10/02/23 19:21 Anion Gap 16.2 (5-19) 10/02/23 19:21 BUN 10 mg/dL (6-20) 10/02/23 19:21 Creatinine 0.6 mg/dL (0.5-0.9) 10/02/23 19:21 GFR Calculation 126.2 mL/min (90-130) 10/02/23 19:21 Glucose 90 mg/dL (65-115) 10/02/23 19:21 Calculated Osmolality 285 mOsm/kg (285-295) 10/02/23 19:21 Calcium 9.4 mg/dL (8.5-10.5) 10/02/23 19:21 Total Bilirubin 0.4 mg/dL (0.15-1.2) 10/02/23 19:21 AST 19 U/L (0-32) 10/02/23 19:21 ALT 14 U/L (0-33) 10/02/23 19:21 Alkaline Phosphatase 81 U/L (35-105) 10/02/23 19:21 Troponin T Baseline < 6 ng/L (0-10) 10/02/23 19:21 Troponin T 120 Minute 6.00 ng/L (0-10) 10/02/23 21:24 Delta Troponin T 0.90665 ABS# (0-10) 10/02/23 21:24 Total Protein 7.5 g/dL (6.6-8.7) 10/02/23 19:21 Albumin 4.5 g/dL (3.5-5.2) 10/02/23 19:21 Globulin 3.0 g/dL (1.3-4.6) 10/02/23 19:21 Lipase 31 U/L (13-60) 10/02/23 19:21 HCG, Qual Negative (Negative) 10/02/23 20:19 Urine Color Yellow (Yellow) 10/02/23 20:19 Urine Appearance Clear (CLEAR) 10/02/23 20:19 Urine pH 7 (5-7) 10/02/23 20:19 Ur Specific [place] 1.010 (1.005-1.030) 10/02/23 20:19 Urine Protein Neg (Negative) 10/02/23 20:19 Urine Glucose (UA) Norm (Normal) 10/02/23 20:19 Urine Ketones 1+ (Negative) H 10/02/23 20:19 Urine Blood Neg (Negative) 10/02/23 20:19 Urine Nitrate Negative (Negative) 10/02/23 20:19 Urine Bilirubin Neg (Negative) 10/02/23 20:19 Urine Urobilinogen Neg mg/dL (Negative) 10/02/23 20:19 Ur Leukocyte Esterase Negative (Negative) 10/02/23 20:19 Discharge Plan Discharge Patient Disposition: Home Clinical Impression: Abdominal pain, right upper quadrant Condition: Stable Prescriptions: New ondansetron 4 mg tablet,disintegrating 4 mg PO Q8H PRN (Reason: nausea and vomiting) 5 Days Qty: 15 0RF No Action fluticasone propionate 50 mcg/actuation spray,suspension 1 spray intranasal DAILY PRN (Reason: allergy symptoms) Qty: 16 0RF Rx Instructions: administer into each nostril cyanocobalamin (vitamin B-12) 1,000 mcg/mL solution 1,000 mcg IM .EVERY 30 DAYS EpiPen 2-Lv 0.3 mg/0.3 mL Auto-Injector 0.3 mg IM . DIRECTED PRN (Reason: Allergic Reaction) ProAir HFA 90 mcg/actuation HFA aerosol inhaler 2 puff inhalation Q6H PRN (Reason: Shortness Of Breath) Discharge Orders: Discharge ED (Routine); Ordered 10/03/23 Ordered By: Narendra Mancini Referrals: Radha Sam MD [Primary Care Provider] - Patient Instructions: Abdominal Pain (ED) Activity Restrictions/Additional Instructions: Tylenol and Motrin as needed for pain. A prescription of Zofran was sent to pharmacy be picked up. Take medication as prescribed. Increase oral hydration. See handout over generalize instructions. Clear liquid diet and slowly advance as tolerated. Call your primary care provider tomorrow with an update of your symptoms and schedule appointment for further management/evaluation. You might need a HIDA scan for further evaluation of your gallbladder. Return to the emergency department the next 12 to 24 hours for any rapid or worsening symptoms to include but not limited to increased abdominal pain, vomiting, fever, chest pain, shortness of breath, lightheadedness, dizziness, or as needed. 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
[2023-10-02 19:56] LABS: Alanine Aminotransferase 14 U/L (0-33); Albumin Level 4.5 g/dL (3.5-5.2); Alkaline Phosphatase 81 U/L (35-105); Anion Gap 16.2 (5-19); Aspartate Amino Transferase 19 U/L (0-32); Blood Urea Nitrogen 10 mg/dL (6-20); Calcium 9.4 mg/dL (8.5-10.5); Carbon Dioxide 24 mmol/L (22-29); Chloride 102 mmol/L (98-107); Glomerular Filtration Rate 126.2 mL/min (90-130); Glucose 90 mg/dL (65-115); Lipase 31 U/L (13-60); Osmolality Calculated 285 mOsm/kg (285-295); Potassium 4.2 mmol/L (3.5-5.1); Sodium 138 mmol/L (136-145); Total Bilirubin 0.4 mg/dL (0.15-1.2); Total Protein 7.5 g/dL (6.6-8.7); Troponin(5th) Baseline < 6 ng/L (0-10)
[2023-10-02 20:19] LABS: D Dimer 0.68 ug/mLFEU (0-0.59)
--- NOTE | 2023-10-02 20:27 | CTR_ITS ---
PROCEDURE INFORMATION: Exam: CTA Chest With Contrast Exam date and time: 10/02/2023 9:16 PM Age: 23 years old Clinical indication: Pain and abnormal findings; Abnormal diagnostic tests; Elevated d-dimer; Shortness of breath; Chest pressure; Prior surgery; Surgery date: 6+ months; Surgery type: Gastric bypass; Patient HX: Cp with SOB. Dimer 0.68; Additional info: Positive d-dimer TECHNIQUE: Imaging protocol: Computed tomographic angiography of the chest with contrast. Exam focused on the arteries. 3D rendering (Not supervised by radiologist): MIP and/or 3D reconstructed images were created by the technologist. Radiation optimization: All CT scans at this facility use at least one of these dose optimization techniques: automated exposure control; mA and/or kV adjustment per patient size (includes targeted exams where dose is matched to clinical indication); or iterative reconstruction. Contrast material: OMNI 350; Contrast volume: 68 ml; Contrast route: INTRAVENOUS (IV); REPORTING DATA: Count of CT and Cardiac NM exams in prior 12 months: This patient has received 0 known CTs and 0 known cardiac nuclear medicine studies in the 12 months prior to the current study. COMPARISON: CR (CHEST, ) 10/02/2023 7:46 PM RADIATION DOSE METRICS: Total DLP (mGy-cm): 305.69 FINDINGS: Pulmonary arteries: No pulmonary emboli. Aorta: No aortic aneurysm. No aortic dissection. Thyroid: No actionable thyroid nodules by size criteria. Lungs: No consolidation. No masses. Pleural spaces: Unremarkable. No pneumothorax. No pleural effusion. Heart: No cardiomegaly. No pericardial effusion. Lymph nodes: No enlarged lymph nodes. Stomach and bowel: Partially imaged surgical changes of gastric bypass. Bones/joints: No aggressive osseous lesions. No acute fracture. Soft tissues: Unremarkable. CT/CT angio chest PE protcl [id number] IMPRESSION: No acute thoracic abnormality. No pulmonary emboli.
[2023-10-02 20:53] LABS: Add Urine Microscopic? NO; Charge for UA Resulting for Rev
[2023-10-02 20:55] LABS: HCG Qualitative Urine. Negative (Negative)
[2023-10-02 21:01] LABS: Bilirubin Urine Neg (Negative); Blood Urine Neg (Negative); Glucose Urine UA Norm (Normal); Ketones Urine 1+ (Negative); Leukocyte Esterase Urine Negative (Negative); Nitrate Urine Negative (Negative); Protein Urine Neg (Negative); Urine Appearance Clear (CLEAR); Urine Color Yellow (Yellow); Urobilinogen Urine Neg (Negative); pH Urine 7 (5-7)
[2023-10-02] MEDS: iohexol 350 mg/mL 500 mL Btl (per mL) IV (21:26)
[2023-10-02 22:01] LABS: Troponin 5 2HR Delta 0.00001 ABS# (0-10)
[2023-10-03 02:10] VITALS: BP 109/78; PULSE 61; RESP 18; O2SAT 98
== END 2023-10-03 02:23 | disposition home or self-care (01) ==
PROVIDERS: Emergency Medicine; Emergency Provider Physician Assistant; PCP Family Medicine
DX: R10.11 Right upper quadrant pain (principal)
CPT/HCPCS: 36415; 71045; 71275; 76705; 80053; 81003; 81025; 83690; 84484; 85025; 85378; 93005; 99285; Q9967

== ENCOUNTER → 2024-07-11 15:37 | Outpatient (BNVA) | payer BC, SELFPAY | PROVIDERS: PCP Family Medicine; Visit Provider Nurse Practitioner Family | DX: R53.83 Other fatigue (principal); R73.09 Other abnormal glucose; R73.9 Hyperglycemia, unspecified | CPT/HCPCS: 80053; 83036; 84443; 85025; 85651; 86140 ==

== ENCOUNTER → 2024-11-15 13:32 | Outpatient (BNVA) | payer BC, SELFPAY | PROVIDERS: PCP Family Medicine; Visit Provider Nurse Practitioner | DX: R52 Pain, unspecified (principal) | CPT/HCPCS: 87400; 87426 ==

== ENCOUNTER → 2025-01-05 09:17 | Outpatient (BNVA) | payer BC, SELFPAY | PROVIDERS: PCP Family Medicine; Visit Provider Family Medicine | DX: R53.83 Other fatigue (principal); Z98.84 Bariatric surgery status; Z13.220 Encounter for screening for lipoid disorders; Z13.6 Encounter for screening for cardiovascular disorders; R76.8 Other specified abnormal immunological findings in serum; L20.82 Flexural eczema; L20.9 Atopic dermatitis, unspecified; M25.50 Pain in unspecified joint; Z91.014 Allergy to mammalian meats | CPT/HCPCS: 80061; 82607; 82728; 82746; 84425; 84590; 85025; 85651; 86003; 86008; 86038; 86140 ==

== ENCOUNTER 2025-04-03 18:14 | Emergency (ER) | payer BC, SELFPAY ==
[2025-04-03 18:21] VITALS: BP 107/74; PULSE 91; RESP 16; TEMP 36.9; O2SAT 99; BMI 23.2
[2025-04-03 20:50] VITALS: BP 121/89; PULSE 76; RESP 16; O2SAT 98
[2025-04-03 20:53] LABS: Basophils % 0.3 %; Eosinophils % 0.1 %; Hematocrit 37.5 % (36-47); Lymphocytes # 1.4 10^3/uL (0.8-4.8); Lymphocytes % 12.2 %; Mean Corpuscular HGB Conc 32.8 g/dL (30-55); Mean Corpuscular Hemoglobin 29.4 pg (27-33); Mean Corpuscular Volume 89.5 fl (85-98); Mean Platelet Volume 11.3 fL (7.4-10.4); Monocytes # 1.1 10^3/uL (0.2-0.9); Monocytes % 9.6 %; Neutrophils # 9.03 10^3/uL (1.8-7.7); Neutrophils % 77.3 %; Nucleated Red Blood Cells % 0 %; Platelet Count 263 10^3/cmm (157-399); Red Blood Count 4.19 10^6/uL (3.85-5.65); Red Cell Distribution Width 12.3 % (12.1-15.1); White Blood Count 11.69 10^3/uL (3.29-11.43)
--- NOTE | 2025-04-03 20:53 | CTR_ITS ---
PROCEDURE INFORMATION: Exam: CT Abdomen And Pelvis With Contrast Exam date and time: 04/03/2025 9:31 PM Age: 24 years old Clinical indication: Abdominal pain; Generalized; Prior surgery; Surgery date: 6+ months; Surgery type: Gastric bypass; Additional info: Abd pain TECHNIQUE: Imaging protocol: Computed tomography of the abdomen and pelvis with contrast. Radiation optimization: All CT scans at this facility use at least one of these dose optimization techniques: automated exposure control; mA and/or kV adjustment per patient size (includes targeted exams where dose is matched to clinical indication); or iterative reconstruction. Contrast material: OMNI 350; Contrast volume: 100 ml; Contrast route: INTRAVENOUS (IV); COMPARISON: CR XR hip LT 2-3V wo/w pel* [id number] 09/20/2022 12:05 PM RADIATION DOSE METRICS: Total DLP (mGy-cm): 377.3 FINDINGS: Liver: Normal. No mass. Gallbladder and biliary ducts: Prior cholecystectomy. Mild common duct dilatation likely on the basis of reservoir effect. Pancreas: Normal. No ductal dilation. Spleen: Borderline splenomegaly. Adrenal glands: Normal. No mass. Kidneys and ureters: Normal. No hydronephrosis. Stomach and bowel: Prior Brenden-en-Y gastric bypass with mildly patulous left abdominal jejunal-jejunal anastomosis. No bowel dilatation to suggest obstruction. Appendix: Not confidently identified. No evidence of appendicitis. Intraperitoneal space: Unremarkable. No free air. No significant fluid collection. Vasculature: Unremarkable. No abdominal aortic aneurysm. Lymph nodes: Unremarkable. No enlarged lymph nodes. Urinary bladder: Unremarkable as visualized. Reproductive: Unremarkable as visualized. Bones/joints: No acute fracture. Mild chronic appearing anterior wedge morphology of the T12 vertebral body with superior endplate Schmorl's node change. Soft tissues: Unremarkable. CT/CT abdomen pelvis w con* [id number] IMPRESSION: 1. No acute findings. 2. Chronic and incidental findings as above.
--- NOTE | 2025-04-03 20:55 | ED_ITS ---
HPI - Abdominal Pain 2 General: Chief Complaint: Abdominal Pain Stated Complaint: Abd Pain Time Seen by Provider: 04/03/25 18:55 Source: patient Mode of arrival: ambulatory Limitations: no limitations History of Present Illness: 24-year-old female states she been havin g abdominal pain started this morning. States it started the epigastric region and has now migrated to her lower abdomen states she has had some diffuse cramping pain rates it a 6 out of 10 states she has not had an appetite. Denies any vomiting denies diarrhea. Had a history of gastric bypass surgery 2 years ago she is also had a cholecystectomy and appendectomy denies any fevers or dysuria Associated Symptoms: Reports nausea; Denies chills, diarrhea, fever(s) and vomiting Related Data Home Medications ?Medication ?Instructions ?Recorded ?Confirmed cyanocobalamin (vitamin B-12) 1,000 mcg IM .EVERY 30 D AYS 07/27/23 01/05/25 1,000 mcg/mL injection solution lubiprostone 8 mcg capsule 8 mcg PO DAILY 01/05/2504/26 pantoprazole 40 mg tablet,delayed 40 mg PO DAILY 01/0501/05/25 release Previous Rx's ?Medication ?Instructions ?Recorded fluticasone propionate 50 1 spray intranasal DAILY PRN 03/28/23 mcg/actuation nasal allergy symptoms #16 grams spray,suspension albuterol sulfate 90 mcg/actuation 2 puff inhalation Q 6H PRN 09/14/24 aerosol inhaler Shortness Of Breath #8.5 gra ms epinephrine 0.3 mg/0.3 mL 0.3 mg (0.3 mL) IM . [facility] 09/14/24 injection, auto-injector (EpiPen PRN Allergic Reaction #2 ea 2-Lv) triamcinolone acetonide 0.1 % 1 applic topical BID #45 4 grams 01/05/25 topical cream prednisone 20 mg tablet See Rx Instructions PO .q AM 14 03/08/25 days #17 tabs ondansetron 4 mg disintegrating 4 mg PO Q6H PRN nausea and 04/03/25 tablet vomiting #14 tabs Allergies Allergy/AdvReac Type Severity Reaction Status Date / Time Alpha-Gal Allergy Intermediate Unknown Verified 01/05/25 07:25 ([id number],[id number] tuberculin, purified protein Allergy Mild rash, itch Verified 01/05/25 07:25 deriva latex Allergy itching Verified 01/05/25 07:25 tacrolimus (From Protopic) Allergy rash Verified 01/05/25 07:25 Nuts Allergy Unknown Unknown Uncoded 01/05/25 07:25 Review of Systems 2 Const: Denies: fever(s), chills, body aches or change in appetite ENMT: Denies: throat pain or dental pain Card: Denies: chest pain Resp: Denies: dyspnea GI: Reports: abdominal pain and nausea; Denies: vomiting or diarrhea Musc: Denies: neck pain or back pain Skin/Breast: Denies: rash Neuro: Denies: headache(s) PFSH ED 2 PFSH: Medical History History of MRSA infection Atopic dermatitis of both hands Hematuria Family history of autoimmune disorder PCOS (polycystic ovarian syndrome) Allergies Asthma Surgical History History of gastric bypass 03/2023 History of dental surgery History of umbilical hernia repair History of appendectomy Hx of tonsillectomy Family History Grandmother Diabetes CAD (coronary artery disease) Grandfather Dementia Cancer Other Chronic kidney disease (CKD) Hyperlipidemia Hypertension Lupus Psoriatic arthritis Rheumatoid arthritis Stroke Social History Smoking and tobacco/nicotine status: never used tobacco/nicotine Second hand smoke exposure: No Alcohol intake: never Substance/Drug Use: never Physical Exam 2 Const: COMMON NORMALS: no acute distress, patient oriented x3 and healthy appearing HENMT: COMMON NORMALS: normocephalic and atraumatic HEAD & SCALP: n ormocephalic and atraumatic Neck/C-Spine: COMMON NORMALS: full ROM and supple Chest: COMMONS NORMALS: normal inspection of the chest Resp: COMMON NORMALS: normal respiratory effort, No retractions, No use of accessory muscles and clear to auscultation bilaterally AUSCULTATION: clear to auscultation bilaterally Cardio: COMMON NORMALS: regular rate, regular rhythm and No murmurs present (Cardio) RATE: regular rate RHYTHM: regular rhythm GI: COMMON NORMALS: Normal to inspection, nondistended, normoactive bowel sounds present, Soft to palpation and no masses PALPATION: Yes Soft to palpation OTHER: mild diffuse tenderness Extremity: COMMON NORMALS: normal to inspection and full ROM Neuro: COMMON NORMALS: patient oriented x3, moves all extremities and no focal motor deficits Psych: COMMON NORMALS: mental status grossly normal, Normal thought process present and cooperative THOUGHT PROCESS: Normal thought process present Skin: COMMON NORMALS: no rashes or lesions noted and no wounds GENERAL SKIN EXAM: no rashes or lesions noted Course 2 Vital Signs: Vital signs: Vital Signs Temperature 98.4 F 04/03/25 18:21 Pulse Rate 108 H 04/03/25 22:23 Respiratory Rate 16 04/03/25 22:23 Blood Pressure 109/75 04/03/25 22:23 Pulse Oximetry 97 04/03/25 22:23 Oxygen Delivery Me thod Room Air 04/03/25 20:50 MDM - Abdominal Pain Medical Decision Making Patient presents for abdominal pain blood work CT here are normal she is stable for discharge follow-up PCP return if worsening she understands agrees to plan. Lab Data I reviewed the patient's lab results. 04/03/25 20:26 04/03/25 20:26 Labs/Radiology: Radiology Impressions Abdomen/Pelvis CT 04/03/25 20:53 IMPRESSION: 1. No acute findings. 2. Chronic and incidental findings as above. Laboratory Results WBC 11.69 10^3/uL (3.29-11.43) H 04/03/25 20:26 RBC 4.19 10^6/uL (3.85-5.65) 04/03/25 20:26 Hgb 12.30 g/dL (11.27-16.99) 04/03/25 20:26 Hct 37.5 % (36-47) 04/03/25 20:26 MCV 89.5 fl (85-98) 04/03/25 20: MCH 29.4 pg (27-33) 04/03/25 20: MCHC 32.8 g/dL (30-55) 04/03/25 20:26 RDW 12.3 % (12.1-15.1) 04/03/25 20:26 Plt Count 263 10^3/cmm (157-399) 04/03/25 20:26 MPV 11.3 fL (7.4-10.4) H 04/03/25 20:26 Neut % (Auto) 77.3 % 04/03/25 20:26 Lymph % (Auto) 12.2 % 04/03/25 20:26 Rich % (Auto) 9.6 % 04/03/25 20: Eos % (Auto) 0.1 % 04/03/25 20: Baso % (Auto) 0.3 % 04/03/25 20: Neut # (Auto) 9.03 10^3/uL (1.8-7.7) H 04/03/25 20:26 Lymph # (Auto) 1.4 10^3/uL (0.8-4.8) 04/03/25 20: Rich # (Auto) 1.1 10^3/uL (0.2-0.9) H 04/03/25 20: Eos # (Auto) 0.0 10^3/uL (0.0-0.8) 04/03/25 20: Baso # (Auto) 0.0 10^3/uL (0.0-0.1) 04/03/25 20: Nucleated RBC % (auto) 0 % 04/03/25: Nucleated RBCs # 0.0 /100WBC 04/03/25 20: Sodium 138 mmol/L (136-145) 04/03/25 20: Potassium 3.9 mmol/L (3.5-5.1) 04/03/25 20: Chloride 101 mmol/L (98-107) 04/03/25 20: Carbon Dioxide 26 mmol/L (22-29) 04/03/25 20: Anion Gap 14.9 (5-19) 04/03/25 20: BUN 8 mg/dL (6-20) 04/03/25 20: Creatinine 0.8 mg/dL (0.5-0.9) 04/03/25 20: GFR Calculation 89.7 mL/min (90-130) L 04/03/25 20: Glucose 98 mg/dL (65-115) 04/03/25 20: Calculated Osmolality 284 mOsm/kg (285-295) L 04/03/25 20: Calcium 9.4 mg/dL (8.5-10.5) 04/03/25 20: Total Bilirubin 0.5 mg/dL (0.15-1.2) 04/03/25 20: AST 17 U/L (0-32) 04/03/25 20: ALT 13 U/L (0-33) 04/03/25 20: Alkaline Phosphatase 83 U/L (35-105) 04/03/25 20: Total Protein 7.9 g/dL (6.6-8.7) 04/03/25 20: Albumin 4.4 g/dL (3.5-5.2) 04/03/25 20: Globulin 3.5 g/dL (1.3-4.6) 04/03/25 20: Lipase 17 U/L (13-60) 04/03/25 20: HCG, Qual Negative (Negative) 04/03/25 20: Urine Color Dark yellow (Yellow) A 04/03/25 20: Urine Appearance Cloudy (CLEAR) A 04/03/25 20: Urine pH 5.5 (5-7) 04/03/25 20:15 Ur Specific [place] 1.035 (1.005-1.030) H 04/03/25 20:15 Urine Protein Trace (Negative) A 04/03/25 20: Urine Glucose (UA) Negative (Normal) 04/03/25 20:15 Urine Ketones Trace (Negative) 04/03/25 20:15 Urine Blood Negative (Negative) 04/03/25 20:15 Urine Nitrate Negative (Negative) 04/03/25 20: Urine Bilirubin Negative (Negative) 04/03/25 20:15 Urine Urobilinogen 1.0 mg/dL (Negative) 04/03/25 20:15 Ur Leukocyte Esterase Trace (Negative) A 04/03/25 20:15 Urine RBC 0-4 /hpf (0-2) H 04/03/25 20:15 Urine WBC 6-10 /hpf (0-5) 04/03/25 20:15 Ur Squamous Epith Cells 6-10 /hpf (0-5) 04/03/25 20:15 Amorphous Sediment Not Reportable 04/03/25 20:15 Urine Bacteria 2+ /hpf (NONE) H 04/03/25 20:15 Hyaline Casts 2.05 /lpf 04/03/25 20:15 All radiology interpretation(s) finalized by discharge Discharge Plan Discharge Patient Disposition: Home Clinical Impression: Abdominal pain Condition: Stable Prescriptions: New ondansetron 4 mg tablet,disintegrating 4 mg PO Q6H PRN (Reason: nausea and vomiting) Qty: 14 0RF No Action fluticasone propionate 50 mcg/actuation spray,suspension 1 spray intranasal DAILY PRN (Reason: allergy symptoms) Qty: 16 0RF Rx Instructions: administer into each nostril pantoprazole 40 mg tablet,delayed release (DR/EC) 40 mg PO DAILY lubiprostone 8 mcg capsule 8 mcg PO DAILY albuterol sulfate 90 mcg/actuation HFA aerosol inhaler 2 puff inhalation Q6H PRN (Reason: Shortness Of Breath) Qty: 8.5 0RF EpiPen 2-Lv 0.3 mg/0.3 mL auto-injector 0.3 mg IM . DIRECTED PRN (Reason: Allergic Reaction) Qty: 2 0RF triamcinolone acetonide 0.1 % cream 1 applic topical BID Qty: 454 1RF prednisone 20 mg tablet See Rx Instructions PO .q AM 14 Days Qty: 17 0RF Rx Instructions: Day 1-5: 2 tabs, Day 6-10: 1 tabs, Day 11-14: 1/2 tabs PO .q AM; cyanocobalamin (vitamin B-12) 1,000 mcg/mL solution 1,000 mcg IM .EVERY 30 DAYS Discharge Orders: Discharge ED (Routine); Ordered 04/03/25 Ordered By: Fernando Navarro Referrals: Radha Sam MD [Primary Care Provider, [facility]] - 4-7 days Discharge Diet: Advance as tolerated Discharge Activity: Resume usual activity Patient Instructions: Abdominal Pain (ED) Print Language: Faroese Coding Level of Care Code ED [facility] for Heather Noel
[2025-04-03 21:03] LABS: HCG, Serum Qual Negative (Negative)
[2025-04-03 21:11] LABS: Alanine Aminotransferase 13 U/L (0-33); Albumin Level 4.4 g/dL (3.5-5.2); Alkaline Phosphatase 83 U/L (35-105); Anion Gap 14.9 (5-19); Aspartate Amino Transferase 17 U/L (0-32); Blood Urea Nitrogen 8 mg/dL (6-20); Calcium 9.4 mg/dL (8.5-10.5); Carbon Dioxide 26 mmol/L (22-29); Chloride 101 mmol/L (98-107); Creatinine Clr Calc Pharmacy 88.8017; Globulin 3.5 g/dL (1.3-4.6); Glomerular Filtration Rate 89.7 mL/min (90-130); Glucose 98 mg/dL (65-115); Lipase 17 U/L (13-60); Osmolality Calculated 284 mOsm/kg (285-295); Potassium 3.9 mmol/L (3.5-5.1); Sodium 138 mmol/L (136-145); Total Bilirubin 0.5 mg/dL (0.15-1.2); Total Protein 7.9 g/dL (6.6-8.7)
[2025-04-03] MEDS: iohexol 350 mg/mL 500 mL Btl (per mL) IV (21:34)
[2025-04-03 21:43] VITALS: RESP 16
[2025-04-03] MEDS: ondansetron 2 mg/ML SDV 2 mL 4 MG IVP (21:43)
[2025-04-03] MEDS: morphine 4 mg/mL SDV 1 mL IVP (21:43)
[2025-04-03 22:02] LABS: Bilirubin Urine Negative (Negative); Blood Urine Negative (Negative); Glucose Urine UA Negative (Normal); Ketones Urine Trace (Negative); Leukocyte Esterase Urine Trace (Negative); Nitrate Urine Negative (Negative); Protein Urine Trace (Negative); Urine Appearance Cloudy (CLEAR); Urine Color Dark Yellow (Yellow); pH Urine 5.5 (5-7)
[2025-04-03 22:04] LABS: Add Urine Microscopic? YES; Bacteria Urine 2+ /hpf; Hyaline Casts Urine 2.05 /lpf
[2025-04-03 22:23] VITALS: BP 109/75; PULSE 108; RESP 16; O2SAT 97
[2025-04-03 22:28] LABS: Specific Gravity, Urine 1.035 (1.005-1.030)
[2025-04-03 22:29] LABS: RBC Urine 0-4 /hpf (0-2)
== END 2025-04-03 22:24 | disposition home or self-care (01) ==
PROVIDERS: Emergency Provider Emergency Medicine; PCP Family Medicine
DX: R10.9 Unspecified abdominal pain (principal)
CPT/HCPCS: 36415; 74177; 80053; 81001; 83690; 84703; 85025; 96374; 96375; 99285; J2270; J2405

== ENCOUNTER → 2025-04-19 14:33 | Outpatient (BNVA) | payer BC, SELFPAY | PROVIDERS: PCP Family Medicine; Visit Provider Nurse Practitioner | DX: R05.9 Cough, unspecified (principal) | CPT/HCPCS: 87426 ==

== ENCOUNTER → 2025-09-11 12:15 | Outpatient (BNVA) | payer BC, SELFPAY | PROVIDERS: PCP Family Medicine; Visit Provider Family Medicine | DX: R30.0 Dysuria (principal); R10.A0 Flank pain, unspecified side | CPT/HCPCS: 81000; 87086 ==